=== PATIENT | female | born 1950 | race Caucasian/White ===

== ENCOUNTER → 2018-04-29 | Outpatient (REF) ==
[~2018-04-29] MED LIST: ASPIR-LOW81 MG PO; COLACE 100100 MG/CAP PO; COLESTID 1GM1 G PO; DETROL; DETROL LA4 PO; MVI; PRILOSEC 20MG20 MG PO; PROBIOTICA100 Milli1 PO
== END ==
LOC: ZLAB.WCH 15:58
DX: Z01.89 Encounter for other specified special examinations (principal)

== ENCOUNTER → 2018-04-30 | Outpatient (REF) | LOC: ZLAB.WCH 17:52 | DX: Z01.89 Encounter for other specified special examinations (principal) ==

== ENCOUNTER → 2018-05-03 | Outpatient (REF) | LOC: COL.CARD 11:35 | DX: Z01.89 Encounter for other specified special examinations (principal) ==

== ENCOUNTER → 2022-08-17 | Outpatient (CLI) | payer MEDICARE, OTHER ==
[~2022-08-17] MED LIST changes: +ASPIRIN E.C. 8181 MG PO; +CALCIUM 600MG+D1 TAB PO; +CLARITIN 1010 MG/TAB PO; +ENTYVIO IV; +EYE MULTIVITAM1 EAC1 PO; +IRON TABLETS325 MG PO; +K-DUR20 MEQ PO; +LASIX 20MG TABL20 MG PO; +MOTRIN 400400 MG/TAB PO; +MULTI VITAMINS1 TAB PO; +MYRBETR25MG PO; +OSTEO-BI-FLEX 21 TAB PO; +PREDNISONE10 MG PO
== END ==
LOC: COL.RAD 08-16 13:30
DX: Z12.2 Encounter for screening for malignant neoplasm of respiratory organs (principal); F17.210 Nicotine dependence, cigarettes, uncomplicated

== ENCOUNTER 2022-12-18 12:25 | Outpatient (CLI) | payer MEDICARE, OTHER ==
[~2022-12-18] VITALS: Ht 175.3 cm; Wt 62.6 kg
[~2022-12-18 12:25] MED LIST changes: +VITAMIN D31000 I1 PO
[2022-12-18 13:06] LABS: HEMATOCRIT 43.6 % (37.0-47.0); HEMOGLOBIN 14.7 g/dl (12.5-16.0); MEAN CELL VOLUME 97 fl (80.0-100.0); MEAN CORPUSCULAR HEMOGLOBIN 33 pg (27-31); MEAN CORPUSCULAR HGB CONC 34 g/dl (33.0-37.0); MEAN PLATELET VOLUME 9.2 fl (7.4-10.4); PLATELET COUNT 309 K/mm3 (130-400); RED BLOOD COUNT 4.52 M/mm3 (4.10-5.30); REDCELL DISTRIBUTION WIDTH-CV 14.7 % (11.5-14.5)
[2022-12-18 13:22] LABS: BAND 4 % (0-10); BASOPHIL 1 % (0-2); BILIRUBIN,TOTAL 0.3 mg/dL (0.2-1.2); CALCIUM 8.6 mg/dL (8.4-10.2); CREATININE, serum 0.82 mg/dL (0.57-1.11); LYMPHOCYTE 7 % (20.0-51.0); NEUTROPHILS 87 % (42.0-75.2); PLATELET ESTIMATE NORMAL (NORMAL); POTASSIUM 4.4 mmol/L (3.5-4.5); TOTAL PROTEIN 5.5 gm/dL (6.2-8.1)
[2022-12-18 13:25] VITALS: BP 116/63; PULSE 84; TEMP 98.9
[2022-12-18] MEDS ORDERED: PREDNISONE 5MG5 MG PO (14:25)
[2022-12-18] MEDS ORDERED: ULTRAM 50MG TAB50 MG PO (14:26)
[2022-12-18] MEDS ORDERED: STELARA90 MG/ML SQ (14:28)
[2022-12-18 16:46] VITALS: BP 122/74; PULSE 71; TEMP 97.7
--- NOTE | 2022-12-18 16:50 | NUR ---
Pt tolerated infusion and 2 hr obs period without issue. She denies complaints. VSS. IV DC'd, site wrapped with coban. Pt has steady gait, and is awaiting arrival of her ride.
== END 2022-12-18 17:00 | disposition home or self-care (01) ==
LOC: EUO 12:25
PROVIDERS: Internal Medicine Gastroenterology
DX: K50.80 Crohn's disease of both small and large intestine without complications (principal)
CPT/HCPCS: J2930; J3358; J7050